=== PATIENT | male | born 1990 ===

== ENCOUNTER 2018-02-09 22:14 | Emergency (ER) | payer MEDICAID, OTHER ==
[2018-02-09 22:15] VITALS: BMI 27.4
[2018-02-09 22:25] VITALS: BP 115/69; PULSE 103; RESP 16; TEMP 98.3; O2SAT 98
--- NOTE | 2018-02-09 22:57 | ED PDOC ---
Upper Extremity Pain/Injury Time Seen by Provider: 02/09/18 22:26 Chief Complaint (Nursing): Finger,Hand,&Wrist History Per: Patient Additional Complaint(s): Pt. states yesterday he injured the L 4th digit while on duty for the [employer]. States his finger was struck by a sharp metal chain. He initially refused medical care but pain has been progressive worsening. Denies fever, numbness, tingling. Past Medical History Reviewed: Historical Data, Nursing Documentation, Vital Signs Vital Signs: Last Vital Signs Temp 98.3 F 02/09/18 22:22 Pulse 103 H 02/09/18 22:22 Resp 16 02/09/18 22:22 BP 115/69 02/09/18 22:22 Pulse Ox 98 02/09/18 22:22 - Medical History PMH: Kidney Stones (2008), Post Traumatic Stress Disorder, Chronic Kidney Disease Denies: Diabetes, Hepatitis, HIV, HTN, Seizures, Sexually Transmitted Disease - Surgical History Surgical History: Appendectomy - Family History Family History: States: Unknown Family Hx - Home Medications Home Medications: Ambulatory Orders Medication Instructions Recorded Multivitamin [Multi-Vitamin Daily] 1 tab PO DAILY 05/20/16 Ibuprofen 600 mg PO Q6 PRN #30 tablet 06/01/16 Famotidine [Pepcid] 20 mg PO BID #10 tab 09/11/16 Ondansetron [Zofran Odt] 4 mg PO Q8 PRN #10 odt 09/11/16 oxyCODONE/Acetaminophen [Percocet 1 ea PO Q6 PRN #10 tab 09/11/16 5/325 mg Tab] - Allergies Allergies/Adverse Reactions: Allergies Allergy/AdvReac Type Severity Reaction Status Date / Time Penicillins Allergy RASH Verified 02/09/18 22:22 Review of Systems ROS Statement: Except As Marked, All Systems Reviewed And Found Negative Physical Exam - Physical Exam Appears: Positive for: Well, Non-toxic, No Acute Distress Skin: Positive for: Normal Color, Warm. Negative for: Rash Pulses-Radial (L): 2+ Extremity: Positive for: Normal ROM, Other (FROM actively of L 4th digit; superficial abrasion on distal phalanx of L 4th digit with moderate tenderness but no swelling or deformity or erythema or active bleeding; L 4th digit nail is intact) Neurologic/Psych: Positive for: Alert, Oriented - ECG O2 Sat by Pulse Oximetry: 98 - Radiology X-Ray: Interpreted by Me (Finger x-ray) X-Ray Interpretation: No Acute Disease - Progress ED Course And Treament: L 4th digit x-ray ordered Wound was debrided. Wound irrigated heavily with NS. Bacitracin ointment applied. DSD applied. Disposition - Clinical Impression Clinical Impression: Abrasion - Patient ED Disposition Is Patient to be Admitted: No - Disposition Referrals: [facility] [Outside] Disposition: Routine/Home Disposition Time: 23:26 Condition: STABLE Additional Instructions: Follow up with PMD for further evaluation. Return to ED immediately if symptoms worsen. Instructions: Skin Abrasions (DC) Forms: [facility] ([place]), [facility] ED School/Work Excuse
--- NOTE | 2018-02-10 09:49 | RAD ---
PROCEDURE: Left ring finger radiographs. HISTORY: Trauma COMPARISON: None. TECHNIQUE: AP radiograph of the left hand, as well as spot oblique and lateral images of left ring finger were obtained. FINDINGS: LEFT RING FINGER: Left ring finger normal, without fracture of focal lesion. Note is made of old healed boxer fracture deformity left 5th metacarpal. JOINTS: Normal. SOFT TISSUES: Normal. OTHER FINDINGS: None. IMPRESSION: Normal left ring finger radiographs. . Old healed boxer fracture deformity left 5th metacarpal.
== END 2018-02-09 23:30 | disposition home or self-care (01) ==
LOC: H.ER 22:14
DX: S60.415A Abrasion of left ring finger, initial encounter (principal); W26.8XXA Contact with other sharp object(s), not elsewhere classified, initial encounter; Y99.0 Civilian activity done for income or pay; F43.10 Post-traumatic stress disorder, unspecified; Z88.0 Allergy status to penicillin

== ENCOUNTER 2018-07-23 20:06 | Emergency (ER) | payer SELFPAY ==
[2018-07-23 20:06] VITALS: BMI 27.4
[2018-07-23 20:34] VITALS: BP 115/69; PULSE 64; RESP 18; TEMP 98.5; O2SAT 98
--- NOTE | 2018-07-23 21:02 | ED PDOC ---
HPI: Abdomen Time Seen by Provider: 07/23/18 20:39 Chief Complaint (Nursing): Abdominal Pain Chief Complaint (Provider): Abdominal Pain History Per: Patient History/Exam Limitations: no limitations Onset/Duration Of Symptoms: Days (x1) Current Symptoms Are (Timing): Better Associated Symptoms: Fever, Nausea, Vomiting, Diarrhea Additional Complaint(s): Farhan Dougherty is a 28 year old male with a past medical history of kidney stones and PTSD who is presenting to the ED for evaluation of vomiting and diarrhea onset yesterday. Patient also reports a fever of 101 yesterday and abdominal pain. Today, patient states that he only feels nauseous and feels dehydrated but all other symptoms have resolved. Patient offers no other medical complaints at this time. PMD: none Against Medical Advice - AMA Patient Left Against Medical Advice: The patient declines admission to the hospital and wishes to leave the Emergency Department. This action is against my medical advice. This decision was made with informed refusal. The patient was told that admission to the hospital is necessary. Explanation of the reasons why were discussed. The risks of leaving were explained to the patient and include, but are not limited to, worsening of known or currently unknown conditions, permanent disability and from undiagnosed or untreated conditions. The patient has the capacity to make this informed decision and understands my explanation of the current medical problem and risks of leaving. The patient voluntarily accepts these risks and signed an AMA form documenting our conversation. The patient was given the opportunity to ask questions and reconsider. The patient was encouraged to return to the Emergency Department at any time for further care. Past Medical History Reviewed: Historical Data, Nursing Documentation, Vital Signs Vital Signs: Last Vital Signs Temp 98.5 F 07/23/18 20:33 Pulse 64 07/23/18 20:33 Resp 18 07/23/18 20:33 BP 115/69 07/23/18 20:33 Pulse Ox 98 07/23/18 20:33 - Medical History PMH: Kidney Stones (2008), Post Traumatic Stress Disorder, Chronic Kidney Disease Denies: Diabetes, Hepatitis, HIV, HTN, Seizures, Sexually Transmitted Disease - Surgical History Surgical History: Appendectomy - Family History Family History: States: Unknown Family Hx - Social History Current smoker - smoking cessation education provided: No Alcohol: None Drugs: Denies - Immunization History Hx Tetanus Toxoid Vaccination: Yes Hx Influenza Vaccination: Yes Hx Pneumococcal Vaccination: Yes - Home Medications Home Medications: Ambulatory Orders Medication Instructions Recorded Multivitamin [Multi-Vitamin Daily] 1 tab PO DAILY 05/20/16 Ibuprofen 600 mg PO Q6 PRN #30 tablet 06/01/16 Famotidine [Pepcid] 20 mg PO BID #10 tab 09/11/16 Ondansetron [Zofran Odt] 4 mg PO Q8 PRN #10 odt 09/11/16 oxyCODONE/Acetaminophen [Percocet 1 ea PO Q6 PRN #10 tab 09/11/16 5/325 mg Tab] Ondansetron ODT [Zofran ODT] 4 mg PO Q8 PRN #10 odt 02/22/18 - Allergies Allergies/Adverse Reactions: Allergies Allergy/AdvReac Type Severity Reaction Status Date / Time Penicillins Allergy RASH Verified 07/23/18 20:33 Review of Systems ROS Statement: Except As Marked, All Systems Reviewed And Found Negative Constitutional: Positive for: Fever Gastrointestinal: Positive for: Nausea, Vomiting, Abdominal Pain, Diarrhea Physical Exam - Reviewed Nursing Documentation Reviewed: Yes Vital Signs Reviewed: Yes - Physical Exam Appears: Positive for: Well, Non-toxic, No Acute Distress Head Exam: Positive for: ATRAUMATIC, NORMAL INSPECTION, NORMOCEPHALIC Skin: Positive for: Normal Color, Warm, DRY Eye Exam: Positive for: EOMI, Normal appearance, PERRL ENT: Positive for: Normal ENT Inspection Neck: Positive for: Normal, Painless ROM Cardiovascular/Chest: Positive for: Regular Rate, Rhythm. Negative for: Murmur Respiratory: Positive for: Normal Breath Sounds. Negative for: Respiratory Distress Gastrointestinal/Abdominal: Positive for: Normal Exam, Soft. Negative for: Tenderness Back: Positive for: Normal Inspection Extremity: Positive for: Normal ROM. Negative for: Deformity, Swelling Neurologic/Psych: Positive for: Alert, Oriented. Negative for: Motor/Sensory Deficits - ECG O2 Sat by Pulse Oximetry: 98 (RA) Pulse Ox Interpretation: Normal Medical Decision Making Medical Decision Making: Time: 20:45 Patient states that he missed his basic training for the [employer] this weekend and wants a work note. He does not want any blood work because he does not have any insurance. Patient refuses further care, evaluation or treatment in the ER. Patient informed of the reasons for the following and planned treatment, which patient understands, however still refuses. Patient informed of the risk and benefits of treatment. Informed that the risk could include worsening of current conditions, undiagnosed conditions, disability or even . Patient understands the following risk and the benefits of treatment. Patient has the capacity to make decisions and still refuses treatment by RN, PA and ER MD. Patient encouraged to return to the ER at any time and to follow up with pmd. Scribe Attestation: Documented by, Cassidy Hernandez acting as a scribe for Kelsie Watson MD. Provider Scribe Attestation: All medical record entries made by the Scribe were at my direction and personally dictated by me. I have reviewed the chart and agree that the record accurately reflects my personal performance of the history, physical exam, medical decision making, and the department course for this patient. I have also personally directed, reviewed, and agree with the discharge instructions and disposition. Disposition - Clinical Impression Clinical Impression: Abdominal pain - Disposition Disposition: Against Medical Advice Disposition Time: 21:00 Condition: UNKNOWN Forms: [employer] ([place])
== END 2018-07-23 21:20 | disposition left against medical advice (07) ==
LOC: H.ER 20:06
DX: R10.9 Unspecified abdominal pain (principal); F43.10 Post-traumatic stress disorder, unspecified; N18.9 Chronic kidney disease, unspecified; Z87.442 Personal history of urinary calculi; Z88.0 Allergy status to penicillin

== ENCOUNTER 2019-01-23 21:54 | Emergency (ER) | payer SELFPAY ==
[2019-01-23 21:54] VITALS: BMI 27.4
--- NOTE | 2019-01-24 00:56 | ED PDOC ---
HPI: General Adult Time Seen by Provider: 01/24/19 00:18 Chief Complaint (Nursing): Flu-like Symptoms Chief Complaint (Provider): bodyaches History Per: Patient History/Exam Limitations: no limitations Onset/Duration Of Symptoms: Hrs (4) Current Symptoms Are (Timing): Still Present Additional Complaint(s): 28 y/o male presents for evaluation of bodyaches x 4 hours. Associated vomiting (x1), diarrhea (x1), congestion, dry cough. Patient states he felt like his blood pressure at onset of symptoms. Denies fever, headache, dizziness, extremity numbness/weakness, chest pain, shortness of breath, palpitations, abdominal pain, urinary symptoms, recent travel, sick contacts. No medications taken for relief thus far Past Medical History Reviewed: Historical Data, Nursing Documentation, Vital Signs Vital Signs: Last Vital Signs Temp 99.3 F 01/23/19 22:26 Pulse 74 01/23/19 22:26 Resp 20 01/23/19 22:26 BP 114/69 01/23/19 22:26 Pulse Ox 97 01/23/19 22:26 - Medical History PMH: Kidney Stones (2008), Post Traumatic Stress Disorder, Chronic Kidney Disease Denies: Diabetes, Hepatitis, HIV, HTN, Seizures, Sexually Transmitted Disease - Surgical History Surgical History: Appendectomy - Family History Family History: States: Unknown Family Hx - Immunization History Hx Tetanus Toxoid Vaccination: Yes Hx Influenza Vaccination: Yes Hx Pneumococcal Vaccination: Yes - Home Medications Home Medications: Ambulatory Orders Medication Instructions Recorded Multivitamin [Multi-Vitamin Daily] 1 tab PO DAILY 05/20/16 Ibuprofen 600 mg PO Q6 PRN #30 tablet 06/01/16 Famotidine [Pepcid] 20 mg PO BID #10 tab 09/11/16 Ondansetron [Zofran Odt] 4 mg PO Q8 PRN #10 odt 09/11/16 oxyCODONE/Acetaminophen [Percocet 1 ea PO Q6 PRN #10 tab 09/11/16 5/325 mg Tab] Ondansetron ODT [Zofran ODT] 4 mg PO Q8 PRN #10 odt 02/22/18 - Allergies Allergies/Adverse Reactions: Allergies Allergy/AdvReac Type Severity Reaction Status Date / Time Penicillins Allergy RASH Verified 07/23/18 20:33 Review of Systems ROS Statement: Except As Marked, All Systems Reviewed And Found Negative Respiratory: Positive for: Cough Gastrointestinal: Positive for: Vomiting, Diarrhea Physical Exam - Reviewed Nursing Documentation Reviewed: Yes Vital Signs Reviewed: Yes - Physical Exam Appears: Positive for: Well, Non-toxic, No Acute Distress (sleeping) Head Exam: Positive for: ATRAUMATIC, NORMAL INSPECTION, NORMOCEPHALIC Skin: Positive for: Normal Color Eye Exam: Positive for: Normal appearance ENT: Positive for: Normal ENT Inspection Cardiovascular/Chest: Positive for: Regular Rate, Rhythm Respiratory: Positive for: Normal Breath Sounds Gastrointestinal/Abdominal: Positive for: Normal Exam Back: Positive for: Normal Inspection Extremity: Positive for: Normal ROM Neurological/Psych: Positive for: Awake, Alert, Oriented (x3) - ECG O2 Sat by Pulse Oximetry: 97 - Progress ED Course And Treament: -ibuprofen -influenza Patient states he is feeling better on re-eval. Tolerated PO Patient educated on findings, discharged with instructions to follow up with PMD within 2-3 days Advised rest, fluids, tylenol/ibuprofen PRN pain Return precautions given Disposition - Clinical Impression Clinical Impression: Viral syndrome - Patient ED Disposition Is Patient to be Admitted: No Counseled Patient/Family Regarding: Studies Performed, Diagnosis, Need For Followup - Disposition Referrals: [facility] [Outside] Disposition: Routine/Home Disposition Time: 01:48 Condition: IMPROVED Instructions: Viral Syndrome (DC) Forms: [facility] ED School/Work Excuse
[2019-01-24 01:57] VITALS: BP 123/71; PULSE 73; RESP 16; TEMP 99; O2SAT 99
== END 2019-01-24 01:57 | disposition home or self-care (01) ==
LOC: H.ER 21:54
DX: B34.9 Viral infection, unspecified (principal); F43.10 Post-traumatic stress disorder, unspecified; N18.9 Chronic kidney disease, unspecified; Z87.442 Personal history of urinary calculi; Z88.0 Allergy status to penicillin